=== PATIENT | male | born 1960 | race Caucasian/White ===

== ENCOUNTER 2016-05-27 23:08 | Emergency (ER) | payer OTHER ==
[2016-05-28 00:16] LABS: BASOPHIL 0.6 % (0-2); EOSINOPHIL 2.9 % (0-5); HCT 45.2 % (42.0-52.0); LYMPHOCYTE 24.8 % (15-48); MCH 28.9 pg (25.0-31.0); MCHC 33.2 g/dL (32.0-36.0); MCV 87.1 fL (78.0-100.0); MONOCYTE 8.1 % (0-12); MPV 11.4 fL (6.0-9.5); NEUTROPHIL 63.6 % (41-80); PLT 249 K/uL (150-400); RBC 5.19 M/uL (4.70-6.00); RDW 14.4 % (11.5-14.0); WBC 10.2 K/uL (4.0-10.5)
[2016-05-28 00:25] LABS: PROTHROMBIN TIME 12.8 SECONDS (11.7-14.0); PTT 28.7 SECONDS (23.2-31.4)
[2016-05-28 00:32] LABS: ALBUMIN 4.5 g/dL (3.5-5.0); BILIRUBIN - TOTAL 0.4 mg/dL (0.1-1.0); CREATININE 1.3 mg/dL (0.7-1.2); GLOBULIN (CALCULATION) 2.2 g/dL (2.2-4.2); MAGNESIUM 2.03 mg/dL (1.40-2.10); POTASSIUM 4.5 mmol/L (3.5-5.1); TOTAL PROTEIN 6.7 g/dL (6.4-8.3)
[2016-05-28 00:34] LABS: CKMB 2.89 ng/mL (0.97-4.94); MYOGLOBIN 39 ng/mL (26-65); TROPONIN T < 0.010 ng/mL
[2016-05-28 00:35] LABS: PRO-BNP 167 pg/mL (0-125)
== END 2016-05-28 03:45 | disposition home or self-care (01) ==
LOC: FER 23:08
PROVIDERS: Emergency Medicine
DX: R07.9 Chest pain, unspecified (principal); R06.02 Shortness of breath; R05 Cough; I10 Essential (primary) hypertension; I25.10 Atherosclerotic heart disease of native coronary artery without angina pectoris; Z79.82 Long term (current) use of aspirin; Z79.899 Other long term (current) drug therapy; Z82.49 Family history of ischemic heart disease and other diseases of the circulatory system; Z95.5 Presence of coronary angioplasty implant and graft
CPT/HCPCS: 36415; 71010; 80053; 82550; 82553; 83735; 83874; 83880; 84484; 85025; 85610; 85730; 93005

== ENCOUNTER 2016-08-05 01:44 | Emergency (ER) | payer SELFPAY | END 2016-08-05 03:12 | disposition home or self-care (01) | LOC: FER 01:44 | DX: S93.412A Sprain of calcaneofibular ligament of left ankle, initial encounter (principal); I11.9 Hypertensive heart disease without heart failure; E78.5 Hyperlipidemia, unspecified; Z87.891 Personal history of nicotine dependence; Z79.02 Long term (current) use of antithrombotics/antiplatelets; Z79.82 Long term (current) use of aspirin; Z79.899 Other long term (current) drug therapy; Z95.5 Presence of coronary angioplasty implant and graft; X50.1XXA Overexertion from prolonged static or awkward postures, initial encounter; Y92.69 Other specified industrial and construction area as the place of occurrence of the external cause; Y99.0 Civilian activity done for income or pay | CPT/HCPCS: 73610; 99283 ==

== ENCOUNTER → 2020-12-12 | Day surgery (SDC) | payer OTHER ==
[~2020-12-12] VITALS: Ht 172.7 cm; Wt 104.3 kg
[~2020-12-12] MED LIST: ASPIRIN EC81 MG PO; BISOPROLOL FUMAR5 M1 PO; CLOPIDOGREL75 MG PO; D3 PO; FINASTERIDE5 MG PO; FLOMAX0.4 MG PO; LIPITOR40 MG PO; LISINOPRIL2.5 MG PO
== END | disposition home or self-care (01) ==
LOC: FAS 10:10
DX: Z12.11 Encounter for screening for malignant neoplasm of colon (principal); D12.5 Benign neoplasm of sigmoid colon; I25.10 Atherosclerotic heart disease of native coronary artery without angina pectoris; I10 Essential (primary) hypertension; E78.5 Hyperlipidemia, unspecified; F41.9 Anxiety disorder, unspecified; F17.200 Nicotine dependence, unspecified, uncomplicated; G47.30 Sleep apnea, unspecified; Z79.82 Long term (current) use of aspirin; Z79.02 Long term (current) use of antithrombotics/antiplatelets; Z79.899 Other long term (current) drug therapy
CPT/HCPCS: J2704; J7120